=== PATIENT | female | born 1990 | race Caucasian/White ===

== ENCOUNTER 2016-10-13 19:42 | Emergency (ER) | payer OTHER ==
[~2016-10-13] VITALS: Ht 160 cm; Wt 61.2 kg
[~2016-10-13 19:42] MED LIST: CIPRO500 M1 PO; DEXILANT60 M1 PO; DEXILANT60 MG PO; LEXAPRO20 M1 PO; MOBIC15 M1 PO; PERCOCET 325 MG1 TAB PO; PERCOCET 5-3251 EACH PO; SKELAXIN800 M1 PO
[2016-10-13 19:56] VITALS: BP 130/85
[2016-10-13] MEDS ORDERED: TYLENOL WITH C1 EAC1 PO (20:41)
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
== END 2016-10-13 21:00 ==
LOC: ERH 19:42
DX: M54.5 Low back pain (principal)

== ENCOUNTER 2016-10-17 17:04 | Emergency (ER) | payer OTHER ==
[~2016-10-17] VITALS: Ht 160 cm; Wt 61.2 kg
[~2016-10-17 17:04] MED LIST changes: +TYLENOL WITH C1 EAC1 PO
[2016-10-17 17:09] VITALS: BP 142/89
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
== END 2016-10-17 18:20 ==
LOC: ERH 17:04
DX: S63.614A Unspecified sprain of right ring finger, initial encounter (principal); S63.616A Unspecified sprain of right little finger, initial encounter; W23.0XXA Caught, crushed, jammed, or pinched between moving objects, initial encounter
CPT/HCPCS: 73140-RT

== ENCOUNTER 2016-11-16 08:16 | Emergency (ER) | payer OTHER ==
[~2016-11-16] VITALS: Ht 160 cm; Wt 61.2 kg
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
[2016-11-16 10:28] VITALS: BP 101/67
[2016-11-16] MEDS ORDERED: DICLOFENAC SODI75 M2 PO (10:31)
[2016-11-16] MEDS ORDERED: CYCLOBENZAPRINE10 M1 PO (10:36)
== END 2016-11-16 10:51 ==
LOC: ERH 08:16
DX: S19.9XXA Unspecified injury of neck, initial encounter (principal); S43.401A Unspecified sprain of right shoulder joint, initial encounter; S20.219A Contusion of unspecified front wall of thorax, initial encounter; V49.40XA Driver injured in collision with unspecified motor vehicles in traffic accident, initial encounter
CPT/HCPCS: 72050

== ENCOUNTER 2016-12-07 07:33 | Emergency (ER) | payer OTHER ==
[~2016-12-07] VITALS: Ht 160 cm; Wt 61.2 kg
[~2016-12-07 07:33] MED LIST changes: +CYCLOBENZAPRINE10 M1 PO; +DICLOFENAC SODI75 M2 PO
--- NOTE | 2016-12-07 07:53 | ED EAR COMPLAINT ---
History of Present Illness General Chief Complaint: Ear Complaints Stated Complaint: LEFT EAR PAIN Source: patient, old records Exam Limitations: no limitations Vital Signs & Intake/Output Vital Signs & Intake/Output Vital Signs Date Time Temp Pulse Resp B/P Pulse O2 O2 Flow FiO2 Ox Delivery Rate 12/07 1040 98.6 78 18 129/76 97 Room Air 12/07 0738 98.8 80 18 139/91 98 Room Air Allergies Coded Allergies: venom-honey bee (BEE VENOM (HONEY BEE)) (Severe, ANAPHALAXIS 01/30/16) ketorolac (From TORADOL) (Intermediate, "BURNING FROM THE INSIDE OUT" 01/30/16) latex (Mild, RASH 01/30/16) Reconcile Medications Dexlansoprazole (Dexilant) 60 MG CAP.BP 1 CAP PO DAILY GERD Escitalopram Oxalate (Lexapro) 20 MG TABLET 1 TAB PO 1700 ANXIETY (Reported) Esomeprazole (Nexium) 40 MG CAPSULE.DR 1 CAP PO DAILY GI (Reported) Triage Note: 26 YO FEMALE TO ER C/O L EAR PAIN SINCE LAST PM. Triage Nurses Notes Reviewed? yes : No Patient currently breastfeeds: No HPI: Patient presents with aching pain to her left ear and decreased hearing since last night. The pain radiates into her neck. The pain is constant. There are no aggravating or mitigating factors. The pain is 8 out of 10. There are no fevers or chills. There is no nausea or vomiting. There is no headache. Past History Travel History Traveled to [place] past 21 day No Medical History Any Pertinent Medical History? see below for history Gastrointestinal: GERD Musculoskeletal: CHRONIC PAIN Psychiatric: anxiety, depression Surgical History Surgical History: non-contributory Psychosocial History What is your primary language Belarusian Tobacco Use: Quit >30 days ago ETOH Use: occasional use Illicit Drug Use: denies illicit drug use Family History Hx Contributory? No Review of Systems Review of Systems Constitutional: Reports: no symptoms. EENTM: Reports: see HPI, ear pain. Respiratory: Reports: no symptoms. Cardiovascular: Reports: no symptoms. GI: Reports: see HPI. Musculoskeletal: Reports: no symptoms. Neurological/Psychological: Reports: no symptoms. Physical Exam Physical Exam General Appearance: well developed/nourished, alert, awake, anxious, moderate distress Head: atraumatic Eyes: Bilateral: PERRL, EOMI. Ears: Bilateral: other (CERUMEN IMPACTION). Mouth/Throat: normal mouth inspection, pharynx normal Neck: normal inspection, supple Cardiovascular/Respiratory: normal breath sounds, normal peripheral pulses, regular rate/rhythm, no respiratory distress Neurologic/Psych: no motor/sensory deficits, awake, alert, oriented x 3, normal gait, normal mood/affect Progress Differential Diagnoses I considered the following diagnoses in my evaluation of the patient: [Cerumen impaction] Plan of Care: Remove cerumen Initial ED EKG: none Departure Departure Disposition: HOME OR SELF CARE Condition: Stable Clinical Impression Primary Impression: Cerumen impaction Referrals: DIONNA PERRY MD (PCP/Family) Additional Instructions: return if symptoms worsen or for any concerns use cerumenex (over the counter) to clear your right ear. Departure Forms: Customer Survey General Discharge Information
[2016-12-07] MEDS ORDERED: NEXIUM40 M1 PO (07:54)
[2016-12-07 10:40] VITALS: BP 129/76
== END 2016-12-07 10:40 ==
LOC: ERH 07:33
DX: H61.22 Impacted cerumen, left ear (principal)
CPT/HCPCS: 96372; J1885

== ENCOUNTER 2018-02-13 13:54 | Emergency (ER) | payer OTHER ==
[~2018-02-13] VITALS: Ht 154.9 cm; Wt 56.7 kg
[~2018-02-13 13:54] MED LIST changes: +NEXIUM40 M1 PO; +PRILOSEC OTC20 M1 PO; +ZOFRAN4 M2 PO
[2018-02-13] MEDS ORDERED: LEXAPRO20 M1 PO (14:47)
--- NOTE | 2018-02-13 14:47 | ED GENERAL ADULT ---
History of Present Illness General Chief Complaint: General Adult Stated Complaint: MED REFILL Source: patient Exam Limitations: no limitations Vital Signs & Intake/Output Vital Signs & Intake/Output Vital Signs Date Time Temp Pulse Resp B/P B/P Pulse O2 O2 Flow FiO2 Mean Ox Delivery Rate 02/13 1456 98.1 74 18 121/72 98 Room Air 02/13 1357 97.3 72 16 111/75 99 Room Air Allergies Coded Allergies: venom-honey bee (BEE VENOM (HONEY BEE)) (Severe, ANAPHALAXIS 01/30/16) ketorolac (From TORADOL) (Intermediate, "BURNING FROM THE INSIDE OUT" 01/30/16) latex (Mild, RASH 01/30/16) Reconcile Medications Escitalopram Oxalate (Lexapro) 20 MG TABLET 1 TAB PO 1700 ANXIETY (Reported) Escitalopram Oxalate (Lexapro) 20 MG TABLET 1 TAB PO DAILY ANXIETY/DEPRESSION Meloxicam (Mobic) 15 MG TABLET 1 TAB PO DAILY PRN PAIN Omeprazole Magnesium (Prilosec Otc) 20 MG TABLET.DR 1 TAB PO DAILY ACID REFLUX (Reported) Ondansetron HCl (Zofran) 4 MG TABLET 1 TAB PO Q6-8P PRN NAUSEA Oxycodone HCl/Acetaminophen (Percocet 5-325 MG Tablet) 5 MG-325 MG TABLET 1 TAB PO BID PRN PAIN Triage Note: REQUESTING REFILL FOR HER LEXAPRO 20 MG Q DAILY. Triage Nurses Notes Reviewed? yes Onset: Abrupt Duration: day(s): (2), constant, continues in ED, getting worse Timing: single episode today Injury Environment: home Severity: mild, moderate No Modifying Factors: none LMP (ages 10-50): unknown : No Patient currently breastfeeds: No HPI: 27-year-old female past MEDICAL history of anxiety, depression, chronic pain presents for evaluation of a medication refill. Patient states she ran out of her Lexapro 2 days ago and gets withdrawal symptoms when she is out of it. States that she gets "brain zaps" as well as sweats and chills. Her last dose was 2 days ago. Denies any other medication uses no illicit drug use or alcohol use. No suicidal or homicidal ideation. She states that her doctor is on vacation and she is unable to get a refill currently. (Michael MARINO,Jonas) Past History Travel History Traveled to [place] past 21 day No Medical History Any Pertinent Medical History? see below for history Neurological: NONE EENT: NONE Cardiovascular: NONE Respiratory: NONE Gastrointestinal: GERD Hepatic: NONE Renal: STONES Musculoskeletal: CHRONIC PAIN Psychiatric: anxiety, depression Surgical History Surgical History: Psychosocial History What is your primary language Brazilian Tobacco Use: Never used Family History Hx Contributory? No (Jonas Alfaro) Review of Systems Review of Systems Constitutional: Reports: chills, diaphoresis. EENTM: Reports: no symptoms. Respiratory: Reports: no symptoms. Cardiovascular: Reports: no symptoms. GI: Reports: no symptoms. Genitourinary: Reports: no symptoms. Musculoskeletal: Reports: no symptoms. Skin: Reports: no symptoms. Neurological/Psychological: Reports: no symptoms. Hematologic/Endocrine: Reports: no symptoms. Immunologic/Allergic: Reports: no symptoms. All Other Systems: Reviewed and Negative (Jonas Alfaro) Physical Exam Physical Exam General Appearance: well developed/nourished, no apparent distress, alert, awake Head: atraumatic, normal appearance Eyes: Bilateral: normal appearance, PERRL, EOMI. Ears, Nose, Throat: hearing grossly normal Neck: normal inspection, supple, full range of motion Respiratory: normal breath sounds, no respiratory distress, lungs clear Cardiovascular: regular rate/rhythm, normal peripheral pulses Peripheral Pulses: 2+ radial (R), 2+ radial (L) Gastrointestinal: normal bowel sounds, soft, non-tender, no organomegaly Back: normal inspection, normal range of motion, no vertebral tenderness Extremities: normal inspection, normal range of motion, no edema Neurologic/Psych: no motor/sensory deficits, awake, alert, oriented x 3, normal gait Skin: intact, normal color, warm/dry Lymphatic: no anterior cervical ronna Core Measures ACS in differential dx? No CVA/TIA Diagnosis: No Sepsis Present: No Sepsis Focused Exam Completed? No (Jonas Alfaro) Progress Differential Diagnoses I considered the following diagnoses in my evaluation of the patient: [ Medication side effect, drug intoxication, drug withdrawal] Plan of Care: Seen and evaluated. She is here for a medication refill of her Lexapro. She ran OUT a few days ago feels that she gets withdrawal symptoms. She's had similar symptoms in the past when she's been out of her meds. She is unable to get in with her doctor currently. He is not taking any other medications. She appears clinically well. She was given a refill for 30 Lexapro tablets advised her to follow-up with primary care doctor as soon as possible discussed return precautions patient agrees Initial ED EKG: none (Jonas Alfaro) Departure Departure Disposition: HOME OR SELF CARE Condition: Stable Clinical Impression Primary Impression: Medication refill Referrals: Jose Villarreal MD (PCP/Family) Additional Instructions: Follow-up with YOUr doctor as soon as possible. Continue to take Lexapro as directed. Return to the emergency department with any concerns. Departure Forms: Customer Survey General Discharge Information Prescriptions: Current Visit Scripts Escitalopram Oxalate (Lexapro) 1 TAB PO DAILY #30 TAB (Jonas Alfaro) PA/MATERIALS CLERK Co-Sign Statement Statement: ED Attending supervision documentation- I saw and evaluated the patient. I have also reviewed all the pertinent lab results and diagnostic results. I agree with the findings and the plan of care as documented in the PA's/MATERIALS CLERK's documentation. x I have reviewed the ED Record and agree with the PA's/MATERIALS CLERK's documentation. [] Additions or exceptions (if any) to the PAs/MATERIALS CLERK's note and plan are summarized below: [] (Devin ROCHE,Colt) Critical Care Note Critical Care Note Critical Care Time: non-applicable (Jonas Alfaro)
[2018-02-13 14:56] VITALS: BP 121/72
== END 2018-02-13 14:57 ==
LOC: ERH 13:54
DX: Z76.0 Encounter for issue of repeat prescription (principal)
CPT/HCPCS: 99281

== ENCOUNTER 2018-05-18 13:29 | Emergency (ER) | payer OTHER ==
[~2018-05-18] VITALS: Ht 160 cm; Wt 58.1 kg
[~2018-05-18 13:29] MED LIST changes: +IBUPROFEN800 M1 PO
[2018-05-18 13:31] VITALS: BP 108/74
--- NOTE | 2018-05-18 14:05 | ED GENERAL ADULT ---
History of Present Illness General Chief Complaint: General Adult Stated Complaint: MED REFILL Source: patient Exam Limitations: no limitations Vital Signs & Intake/Output Vital Signs & Intake/Output Vital Signs Date Time Temp Pulse Resp B/P B/P Pulse O2 O2 Flow FiO2 Mean Ox Delivery Rate 05/18 1331 98.9 82 20 108/74 98 Room Air Allergies Coded Allergies: venom-honey bee (BEE VENOM (HONEY BEE)) (Severe, ANAPHALAXIS 01/30/16) ketorolac (From TORADOL) (Intermediate, "BURNING FROM THE INSIDE OUT" 01/30/16) latex (Mild, RASH 01/30/16) Triage Note: PT TO ED FOR MED REFILL OF LEXAPRO AND PROGESTERONE. Triage Nurses Notes Reviewed? yes Onset: Abrupt Duration: day(s): Timing: constant : No Patient currently breastfeeds: No HPI: 28-year-old female with a history of anxiety, depression, and irregular menstrual cycles presenting for refill of her Lexapro and Provera. Patient states that she is prescribed 20 mg of Lexapro daily for her anxiety and depression by her PMD, but he is away on vacation. She ran out a few days ago and has been unable to get a refill. Also states that she has irregular menstrual cycles, her LMP was approximately 6 weeks ago. She had 2 home tests that were negative. States that when her period is late her OB/ [facility] Dr. Zafar will give her 10 mg of Provera 5 days to bring on a menstrual period. States that she would like to refill both while she is here. Denies any pain or physical complaints. (Hardik MARINO,Abbie) Reconcile Medications Escitalopram Oxalate (Lexapro) 20 MG TABLET 1 TAB PO DAILY ANXIETY/DEPRESSION Escitalopram Oxalate (Lexapro) 20 MG TABLET 1 TAB PO DAILY anxiety Ibuprofen 800 MG TABLET 1 TAB PO TID PRN pain Medroxyprogesterone Acetate (Provera) 10 MG TABLET 1 TAB PO DAILY amenorrhea (Pratima ROCHE,[facility]) Past History Travel History Traveled to [place] past 21 day No Medical History Any Pertinent Medical History? see below for history Neurological: NONE EENT: NONE Cardiovascular: NONE Respiratory: NONE Gastrointestinal: GERD Hepatic: NONE Renal: STONES Musculoskeletal: CHRONIC PAIN Psychiatric: anxiety, depression Surgical History Surgical History: Psychosocial History What is your primary language Dutch Tobacco Use: Quit >30 days ago ETOH Use: denies use Illicit Drug Use: denies illicit drug use Family History Hx Contributory? No (Abbie Biggs) Review of Systems Review of Systems Constitutional: Reports: no symptoms. EENTM: Reports: no symptoms. Respiratory: Reports: no symptoms. Cardiovascular: Reports: no symptoms. GI: Reports: no symptoms. Genitourinary: Reports: no symptoms. Musculoskeletal: Reports: no symptoms. Skin: Reports: no symptoms. Neurological/Psychological: Reports: no symptoms. Hematologic/Endocrine: Reports: no symptoms. Immunologic/Allergic: Reports: no symptoms. All Other Systems: Reviewed and Negative (Abbie Biggs) Physical Exam Physical Exam General Appearance: well developed/nourished, no apparent distress, alert, awake Comments: Gen.: Well-nourished, well-developed, no acute distress. Head: Normocephalic, atraumatic. Eyes: Normal inspection bilaterally Ears: Normal inspection bilaterally Nose: Normal inspection Neck: Normal inspection Lungs: clear to auscultation bilaterally, normnal breath sounds Heart: regular rate and rhythm Abdomen: soft and non-tender Extremities: Normal inspection Neurologic: alert and oriented x3, steady gait Skin: warm and dry Psychiatric: Normal mood and affect, no apparent delusions or hallucinations, behavior appropriate Core Measures ACS in differential dx? No CVA/TIA Diagnosis: No Sepsis Present: No Sepsis Focused Exam Completed? No (Abbie Biggs) Progress Differential Diagnoses I considered the following diagnoses in my evaluation of the patient: [ Medication refill versus ] Plan of Care: Orders Procedure Date/time Status URINE 05/18 1343 Complete Laboratory Tests 05/18/18 1350: Urine Test NEGATIVE Patient had a negative urine test in the emergency department. Given refill on her Lexapro and Provera. She will follow-up with her PMD and N[facility]LE[facility] WE[facility]ONS SPECIALIST. Given strict return precautions per Initial ED EKG: none (Abbie Biggs) Departure Departure Disposition: HOME OR SELF CARE Condition: Stable Clinical Impression Primary Impression: Medication refill Referrals: Jose Villarreal MD (PCP/Family) Additional Instructions: Take Lexapro and Provera as prescribed. Follow-up with your PMD and [facility] WE[facility] SPECIALIST for further evaluation. Return to the emergency department for any new or worsening symptoms per Departure Forms: Customer Survey General Discharge Information (Abbie Biggs) Departure Prescriptions: Current Visit Scripts Escitalopram Oxalate (Lexapro) 1 TAB PO DAILY #30 TAB Medroxyprogesterone Acetate (Provera) 1 TAB PO DAILY #5 TAB PA/BROACH TROUBLE SHOOTER Co-Sign Statement Statement: ED Attending supervision documentation- [] I saw and evaluated the patient. I have also reviewed all the pertinent lab results and diagnostic results. I agree with the findings and the plan of care as documented in the PA's/BROACH TROUBLE SHOOTER's documentation. x[] I have reviewed the ED Record and agree with the PA's/BROACH TROUBLE SHOOTER's documentation. [] Additions or exceptions (if any) to the PAs/BROACH TROUBLE SHOOTER's note and plan are summarized below: [] (Pratima ROCHE,[facility]) Critical Care Note Critical Care Note Critical Care Time: non-applicable (Abbie Biggs)
[2018-05-18] MEDS ORDERED: LEXAPRO20 M1 PO (14:07)
[2018-05-18] MEDS ORDERED: PROVERA10 MG PO (14:07)
== END 2018-05-18 14:09 ==
LOC: ERH 13:29
DX: Z76.0 Encounter for issue of repeat prescription (principal)
CPT/HCPCS: 81025